=== PATIENT | male | born 1985 | race Two or more races ===

== ENCOUNTER 2018-12-15 00:23 | Emergency (ER) | payer OTHER ==
[~2018-12-15] VITALS: Ht 170.2 cm; Wt 81.6 kg
== END 2018-12-15 04:11 | disposition home or self-care (01) ==
LOC: ER 00:23
DX: S62.395A Other fracture of fourth metacarpal bone, left hand, initial encounter for closed fracture (principal); S60.221A Contusion of right hand, initial encounter; W22.8XXA Striking against or struck by other objects, initial encounter; Y93.89 Activity, other specified; Y92.89 Other specified places as the place of occurrence of the external cause; Y99.8 Other external cause status